=== PATIENT | female | born 1945 | race Caucasian/White ===

== ENCOUNTER 2024-03-30 14:45 | Inpatient (IN) | payer MEDICARE, BC ==
[2024-03-30] MEDS ORDERED: fentaNYL 50 MCG/ML 2 ML VIAL ONE (20:49)
[2024-03-30] MEDS ORDERED: Rocuronium 50 MG/5 ML Multi-Dose VIAL ONE (20:49)
[2024-03-30] MEDS ORDERED: Succinylcholine PF 200 MG/10 ML SYRINGE IV ONE (20:49)
[2024-03-30] MEDS ORDERED: Lidocaine PF 2% (20 MG/ML) 5 ML VIAL ONE (20:50)
[2024-03-30] MEDS ORDERED: NS 10 ML IV ONE (20:51)
[2024-03-30] MEDS ORDERED: Ondansetron 4 MG/2 ML VIAL ONE (21:28)
[2024-03-30] MEDS ORDERED: dexAMETHasone 10 MG/ML VIAL ONE (21:28)
== END 2024-03-31 23:47 | disposition expired | DRG 684 ==
LOC: COL.ER 14:45 → ICU 18:31
PROVIDERS: ADMIT Internal Medicine
DX: N17.9 Acute kidney failure, unspecified (principal); R34 Anuria and oliguria
CPT/HCPCS: J0690; J1100; J2405; J2704; J3010